=== PATIENT | male | born 1950 | race Caucasian/White ===

== ENCOUNTER 2016-07-21 08:51 | Day surgery (SDC) | payer BC ==
[~2016-07-21] VITALS: Ht 167.6 cm; Wt 92.3 kg
[~2016-07-21 08:51] MED LIST: PRED20TA PO; PROM5SYR2 PO
[2016-07-21 09:25] VITALS: Ht 167.6 cm; Wt 92.3 kg
[2016-07-21] MEDS ORDERED: LISI10TA2 PO (09:41)
[2016-07-21] MEDS ORDERED: ASPI-664 PO (09:41)
[2016-07-21] MEDS ORDERED: TAMS-14 PO (09:41)
[2016-07-21 09:51] VITALS: BP 108/77; PULSE 59; RESP 18
[2016-07-21] MEDS ORDERED: PROPOFOL 20 ML ONE (10:15)
[2016-07-21] MEDS ORDERED: MIDAZOLAM 1 MG/ML 2 ML INJ ONE ×2 (10:16)
[2016-07-21] MEDS ORDERED: FENTAnyl 50 MCG/ML VIAL ONE (10:17)
--- NOTE | 2016-07-21 15:32 | GILP ---
DATE OF PROCEDURE: 07/21/2016 NAME OF PROCEDURE: Colonoscopy and biopsy. SURGEON: Leesa Antunez MD PREOPERATIVE DIAGNOSIS: Screening colonoscopy. POSTOPERATIVE DIAGNOSES: 1. Colonoscopy all the way to the cecum. 2. Small sigmoid colon polyp was removed using the biopsy forceps. 3. Diverticulosis of the colon. 4. Internal hemorrhoids. INDICATION FOR THE PROCEDURE: Mr. Jesus Rowley is a 66-year-old male patient who was scheduled f or screening colonoscopy. The procedure and possible complications had been explained to the patient. He understood and conse nted to the procedure. DESCRIPTION OF PROCEDURE: Under the influence of anesthesia, the colonoscope was carefully introduc ed into the rectum and, under direct vision, was advanced all the way to the cecum. FINDINGS: The patient had a small sigmoid colon polyp and it was removed using the biopsy forceps. He had internal hemorrhoids. The patient also had diverticulosis of the colon. He tolerated the procedure very well and there was no complication from the procedure. At the end o f the procedure, he was awake with stable vital signs and he was discharged home to the care of his family. IMPRESSION: 1. Colonoscopy all the way to the cecum. 2. Small sigmoid colon polyp was removed using the biopsy forceps. 3. Diverticulosis of the colon. 4. Internal hemorrhoids. PLAN: 1. Await histopathology report. 2. Next screening colonoscopy in 10 years. Dictated By: LEESA JACKSON/KESHAV Conf#: [id number] DID#: [id number] CC: SREE MORGAN MD; LEESA ANTUNEZ MD;*[facility]*
== END 2016-07-21 11:36 | disposition home or self-care (01) ==
LOC: GIL 08:51
PROVIDERS: ATTEND Internal Medicine Gastroenterology
DX: Z12.11 Encounter for screening for malignant neoplasm of colon (principal); D12.5 Benign neoplasm of sigmoid colon; K57.90 Diverticulosis of intestine, part unspecified, without perforation or abscess without bleeding; K64.8 Other hemorrhoids; I10 Essential (primary) hypertension; E66.9 Obesity, unspecified; Z68.32 Body mass index [BMI] 32.0-32.9, adult
CPT/HCPCS: 45380; 88305; J2250; J3010